=== PATIENT | female | born 1955 | race Caucasian/White ===

== ENCOUNTER → 2016-03-04 | Outpatient (CLI) | payer OTHER | LOC: M SLEEP 18:16 | PROVIDERS: ATTEND Nurse Practitioner Adult Health | DX: G47.30 Sleep apnea, unspecified (principal) ==

== ENCOUNTER → 2016-05-02 | Outpatient (REF) | payer OTHER | LOC: M SFHCWAGY 13:28 | PROVIDERS: ATTEND Family Medicine | DX: N88.8 Other specified noninflammatory disorders of cervix uteri (principal) ==

== ENCOUNTER → 2016-05-02 | Outpatient (CLI) | payer OTHER ==
--- NOTE | 2016-05-02 14:42 | REPMRS ---
Patient History The patient states she had a clinical breast exam in 04/2016. Family history of colorectal cancer in maternal grandfather at age 50 or over, colorectal cancer in maternal aunt at age 50 or over, and endometrial cancer in maternal aunt at age 50 or over. Took hormonal contraceptives for 1 year. Taking unspecified hormones for 10 years 6 months. Digital Woman Screen Mammo: May 02, 2016 - Exam #: [id number] Bilateral CC and MLO view(s) were taken. Technologist: Tessa Altman Technologist Prior study comparison: January 04, 2015, digital woman screen mammo performed at [facility]. December 09, 2013, bilateral bilat screen digital mammo, performed at [facility] ([facility]). November 04, 2012, bilateral bilat screen digital mammo, performed at [facility] ([facility]). FINDINGS: There are scattered fibroglandular densities. There has been no change in the appearance of the mammogram from the prior studies. There is a mild amount of scattered fibroglandular density which is fairly symmetric. There is no interval development of dominant mass, architectural distortion, or clustered microcalcification suggestive of malignancy. ASSESSMENT: BI-RADS/ACR category 1 mammogram. Negative. Recommendation Routine screening mammogram in 1 year (for women over age 40). This mammogram was interpreted with the aid of an FDA-approved computer-aided dectection system. Electronically Signed By: Stephan Sánchez MD 05/02/16 2253
== END ==
LOC: M WHC 13:02
PROVIDERS: ATTEND Family Medicine
DX: Z12.31 Encounter for screening mammogram for malignant neoplasm of breast (principal)
CPT/HCPCS: G0123; G0202

== ENCOUNTER → 2016-09-08 | Outpatient (REF) | payer OTHER | LOC: M LABDRAW1 10:46 | PROVIDERS: ATTEND Internal Medicine Endocrinology, Diabetes & Metabolism | DX: E03.9 Hypothyroidism, unspecified (principal) ==

== ENCOUNTER → 2016-10-24 | Outpatient (REF) | payer OTHER ==
[2016-10-24 12:46] LABS: BASO % 0.8 % (0.0-1.0); EOS # 0.1 K/mm3 (0.0-0.50); EOS % 1.2 % (0.0-3.0); LARGE UNSTAINED CELL # 0.1 K/mm3 (0.0-0.4); LARGE UNSTAINED CELL % 1.8 % (0.0-4.0); LYMPH # 2.6 K/mm3 (1.5-4.5); LYMPH % 41.6 % (24.0-44.0); MEAN CORPUSCULAR HGB CONC 33.6 g/dl (32.0-36.5); MEAN CORPUSCULAR VOLUME 89.2 fl (80.0-96.0); MONO # 0.4 K/mm3 (0.0-0.8); MONO % 6.9 % (0.0-5.0); NEUTROPHILS # 2.9 K/mm3 (1.8-7.7); NEUTROPHILS % 47.7 % (36.0-66.0); PLATELET COUNT, AUTOMATED 494 k/mm3 (150-450); RED CELL DISTRIBUTION WIDTH 12.9 % (11.5-14.5)
[2016-10-24 13:11] LABS: ALBUMIN 3.9 GM/DL (3.2-5.2); ALBUMIN/GLOBULIN RATIO 1.18 (1.00-1.93); ALKALINE PHOSPHATASE 56 U/L (45-117); ALT/SGPT 18 U/L (12-78); ANION GAP 8 MEQ/L (8-16); AST/SGOT 16 U/L (15-37); BILIRUBIN,TOTAL 0.6 MG/DL (0.2-1.0); BLOOD UREA NITROGEN 20 MG/DL (7-18); CARBON DIOXIDE LEVEL 32 MEQ/L (21-32); CHLORIDE LEVEL 100 MEQ/L (98-107); CHOLESTEROL LEVEL 200 MG/DL (<200); CREATININE FOR GFR 0.63 MG/DL (0.55-1.02); FREE T4 1.53 NG/DL (0.76-1.46); GLOMERULAR FILTRATION RATE > 60.0 (>45); GLUCOSE, FASTING 92 MG/DL (80-110); POTASSIUM SERUM 4.2 MEQ/L (3.5-5.1); SODIUM LEVEL 140 MEQ/L (136-145); TOTAL PROTEIN 7.2 GM/DL (6.4-8.2); TRIGLYCERIDES LEVEL 65 MG/DL (<150)
== END ==
LOC: M LAB REF 12:25
PROVIDERS: ATTEND Emergency Medicine
DX: E78.2 Mixed hyperlipidemia (principal); E03.9 Hypothyroidism, unspecified

== ENCOUNTER → 2016-11-10 | Outpatient (REF) | payer OTHER ==
[2016-11-10 15:10] LABS: PERCENT SATURATION 19.5 % (13.2-45.0)
== END ==
LOC: M LAB REF 13:13
PROVIDERS: ATTEND Internal Medicine Medical Oncology
DX: D47.3 Essential (hemorrhagic) thrombocythemia (principal)

== ENCOUNTER → 2017-03-04 | Outpatient (REF) | payer OTHER ==
[2017-03-04 13:09] LABS: HEPATITIS C VIRUS ABY INDEX < 0.0 INDEX (<0.8)
== END ==
LOC: M LABDRAW1 10:23
DX: J45.20 Mild intermittent asthma, uncomplicated (principal)

== ENCOUNTER → 2017-05-08 | Outpatient (REF) | payer OTHER | LOC: M SFHCWAGY 13:32 | DX: Z12.4 Encounter for screening for malignant neoplasm of cervix (principal) ==

== ENCOUNTER → 2017-05-08 | Outpatient (CLI) | payer OTHER | LOC: M WHC 13:05 | DX: Z12.31 Encounter for screening mammogram for malignant neoplasm of breast (principal) | CPT/HCPCS: G0123 ==

== ENCOUNTER 2017-07-15 07:26 | Day surgery (SDC) | payer OTHER ==
[2017-07-15] MEDS: NS 1,000 ML IV (07:45)
[2017-07-15] MEDS ORDERED: LIDOCAINE 2% INJ 100 MG/5 ML SDV (FOR ANES.) As Ordered (09:55)
[2017-07-15] MEDS ORDERED: PROPOFOL 200 MG/20 ML VIAL As Ordered ×2 (09:55→10:02)
== END 2017-07-15 10:56 | disposition home or self-care (01) ==
LOC: M OPP 07:26
DX: Z12.11 Encounter for screening for malignant neoplasm of colon (principal); Z86.010 Personal history of colon polyps; D12.2 Benign neoplasm of ascending colon; K64.0 First degree hemorrhoids; E78.5 Hyperlipidemia, unspecified; E03.9 Hypothyroidism, unspecified; R01.1 Cardiac murmur, unspecified; K44.9 Diaphragmatic hernia without obstruction or gangrene; D47.3 Essential (hemorrhagic) thrombocythemia; D64.9 Anemia, unspecified; K21.9 Gastro-esophageal reflux disease without esophagitis; M19.90 Unspecified osteoarthritis, unspecified site; M51.9 Unspecified thoracic, thoracolumbar and lumbosacral intervertebral disc disorder; L90.9 Atrophic disorder of skin, unspecified; M85.80 Other specified disorders of bone density and structure, unspecified site; J45.909 Unspecified asthma, uncomplicated; G47.30 Sleep apnea, unspecified; Z98.84 Bariatric surgery status; Z87.442 Personal history of urinary calculi; Z87.891 Personal history of nicotine dependence; Z88.8 Allergy status to other drugs, medicaments and biological substances; Z88.1 Allergy status to other antibiotic agents; Z79.82 Long term (current) use of aspirin; Z79.899 Other long term (current) drug therapy
CPT/HCPCS: 45380

== ENCOUNTER 2017-08-26 20:52 | Emergency (ER) | payer OTHER ==
[2017-08-26 21:48] LABS: BASO % 0.3 % (0.0-1.0); EOS # 0.1 10^3/uL (0.0-0.50); EOS % 0.5 % (0.0-3.0); HEMATOCRIT 45.6 % (36.0-47.0); HEMOGLOBIN 15.7 g/dl (12.0-15.5); IMMATURE GRANULOCYTE % 0.3 % (0-3.0); LYMPH # 2.9 10^3/uL (1.5-4.5); LYMPH % 30.4 % (24.0-44.0); MEAN CORPUSCULAR HEMOGLOBIN 29.1 pg (27.0-33.0); MEAN CORPUSCULAR HGB CONC 34.4 g/dl (32.0-36.5); MEAN CORPUSCULAR VOLUME 84.4 fl (80.0-96.0); MONO # 0.9 10^3/uL (0.0-0.8); MONO % 9.2 % (0.0-5.0); NEUTROPHILS # 5.7 10^3/uL (1.8-7.7); NEUTROPHILS % 59.3 % (36.0-66.0); PLATELET COUNT, AUTOMATED 491 10^3/uL (150-450); RED CELL DISTRIBUTION WIDTH 12.6 % (11.5-14.5); WHITE BLOOD COUNT 9.5 10^3/uL (4.0-10.0)
[2017-08-26] MEDS: NS 1,000 ML IV (21:48)
[2017-08-26] MEDS: PANTOPRAZOLE 40MG INJ (PROTONIX) (C9113) IV (21:48)
[2017-08-26 22:00] LABS: INR 1.06; PARTIAL THROMBOPLASTIN TIME 29.3 SECONDS (25.4-37.6); PROTHROMBIN TIME 13.9 SECONDS (12.1-14.4)
[2017-08-26 22:12] LABS: ALBUMIN 3.9 GM/DL (3.2-5.2); ALBUMIN/GLOBULIN RATIO 0.91 (1.00-1.93); ALKALINE PHOSPHATASE 72 U/L (45-117); ALT/SGPT 20 U/L (12-78); ANION GAP 10 MEQ/L (8-16); AST/SGOT 16 U/L (7-37); BILIRUBIN,DIRECT 0.2 MG/DL (0.0-0.2); BILIRUBIN,TOTAL 0.8 MG/DL (0.2-1.0); BLOOD UREA NITROGEN 23 MG/DL (7-18); CARBON DIOXIDE LEVEL 31 MEQ/L (21-32); CHLORIDE LEVEL 96 MEQ/L (98-107); CREATININE FOR GFR 0.87 MG/DL (0.55-1.30); GLOMERULAR FILTRATION RATE > 60.0 (>45); GLUCOSE, FASTING 95 MG/DL (70-100); LIPASE 261 U/L (73-393); POTASSIUM SERUM 3.1 MEQ/L (3.5-5.1); SODIUM LEVEL 137 MEQ/L (136-145); TOTAL PROTEIN 8.2 GM/DL (6.4-8.2)
== END 2017-08-26 23:23 | disposition home or self-care (01) ==
LOC: M ED 20:52
DX: K92.2 Gastrointestinal hemorrhage, unspecified (principal); K92.1 Melena; K64.8 Other hemorrhoids; K21.9 Gastro-esophageal reflux disease without esophagitis; G47.30 Sleep apnea, unspecified; E03.9 Hypothyroidism, unspecified; Z88.8 Allergy status to other drugs, medicaments and biological substances; Z88.1 Allergy status to other antibiotic agents; Z98.84 Bariatric surgery status; Z79.899 Other long term (current) drug therapy; Z79.82 Long term (current) use of aspirin
CPT/HCPCS: C9113

== ENCOUNTER → 2017-09-07 | Outpatient (REF) | payer OTHER ==
[2017-09-07 14:40] LABS: CHOLESTEROL LEVEL 178 MG/DL (<200); CHOLESTEROL RISK RATIO 1.913 (<5); FREE T4 1.48 NG/DL (0.76-1.46); HDL CHOLESTEROL 93 MG/DL (>40); LDL CHOLESTEROL 72.2 MG/DL (<100); NON-HDL-C 85 MG/DL; TRIGLYCERIDES LEVEL 64 MG/DL (<150)
== END ==
LOC: M LABDRAW1 12:57
DX: E78.2 Mixed hyperlipidemia (principal); E03.9 Hypothyroidism, unspecified
CPT/HCPCS: 84443

== ENCOUNTER → 2018-05-14 | Outpatient (CLI) | payer OTHER ==
[~2018-05-14] MED LIST: ALBU83IN INH; AMMO12CR EXT; ASPI81TA24 PO; ATRO0.063; BENA25CA4 PO; CHLO125TA PO; CORT1OIN2 TOP; EQ S PO; ESTR62CR TOP; IPRAINH INH; IRON15CH PO; K-TA1TAB PO; LAC-12LO3 TOP; LEVOPOW56 XX; OPUR1TAB PO; PANT40TA3 PO; REGL10TA6 PO; ROSU10TA5 PO; SYNT100T PO; XYZA5TAB2 PO; ZOFR4TAB16 PO
--- NOTE | 2018-05-14 17:07 | REPMRS ---
Patient History The patient states she has not had a clinical breast exam in over a year. Family history of colorectal cancer at age 50 or over in maternal grandfather, colorectal cancer at age 50 or over and endometrial cancer at age 50 or over in maternal aunt. Took hormonal contraceptives for 1 year. Taking unspecified hormones for 12 years 6 months. Digital Woman Screen Mammo: May 14, 2018 - Exam #: [id number] Bilateral CC and MLO view(s) were taken. Technologist: Tessa Altman Technologist Prior study comparison: May 08, 2017, digital woman screen mammo performed at [facility]. May 02, 2016, digital woman screen mammo performed at [facility]. FINDINGS: There are scattered fibroglandular densities. There has been no change in the appearance of the mammogram from the prior studies. There is a mild amount of residual fibroglandular tissue which is fairly symmetric. There is no interval development of dominant mass, architectural distortion, or clustered microcalcification suggestive of malignancy. There are scattered, small, benign calcifications of doubtful clinical significance. No significant changes when compared with prior studies. Assessment: BI-RADS/ACR category 2 mammogram. Benign Findings. Recommendation Routine screening mammogram in 1 year (for women over age 40). This mammogram was interpreted with the aid of an FDA-approved computer-aided dectection system. A. Negative x-ray reports should not delay biopsy if a dominant or clinically suspicious mass is present. B. Four to eight percent of cancers are not identified by mammography. C. Adenosis and dense breast may obscure an underlying neoplasm. Electronically Signed By: Willy Osborne MD 05/14/18 2169
== END ==
LOC: M WHC 14:02
PROVIDERS: ATTEND Family Medicine
DX: Z12.31 Encounter for screening mammogram for malignant neoplasm of breast (principal); Z80.0 Family history of malignant neoplasm of digestive organs; Z80.49 Family history of malignant neoplasm of other genital organs

== ENCOUNTER → 2018-05-14 | Outpatient (REF) | payer OTHER | LOC: M SFHCWAGY 14:34 | PROVIDERS: ATTEND Family Medicine | DX: Z12.4 Encounter for screening for malignant neoplasm of cervix (principal); N88.8 Other specified noninflammatory disorders of cervix uteri ==

== ENCOUNTER → 2018-09-10 | Outpatient (REF) | payer OTHER ==
[~2018-09-10] MED LIST changes: -EQ S PO; -ROSU10TA5 PO; +ROSU10TA6 PO; +STOO100C15 PO
[2018-09-10 13:00] LABS: BASO # 0.1 10^3/uL (0.0-0.2); BASO % 1.2 % (0.0-1.0); EOS # 0.1 10^3/uL (0.0-0.50); EOS % 2.5 % (0.0-3.0); HEMATOCRIT 44.3 % (36.0-47.0); HEMOGLOBIN 14.5 g/dl (12.0-15.5); LYMPH # 2.2 10^3/uL (1.5-4.5); LYMPH % 44.9 % (24.0-44.0); MEAN CORPUSCULAR HEMOGLOBIN 29.5 pg (27.0-33.0); MEAN CORPUSCULAR HGB CONC 32.7 g/dl (32.0-36.5); MEAN CORPUSCULAR VOLUME 90.2 fl (80.0-96.0); MONO # 0.4 10^3/uL (0.0-0.8); MONO % 8.8 % (0.0-5.0); NEUTROPHILS # 2.1 10^3/uL (1.8-7.7); NEUTROPHILS % 42.4 % (36.0-66.0); PLATELET COUNT, AUTOMATED 445 10^3/uL (150-450); RED BLOOD COUNT 4.91 10^6/uL (4.00-5.40); WHITE BLOOD COUNT 4.9 10^3/uL (4.0-10.0)
[2018-09-10 13:38] LABS: ALBUMIN 3.7 GM/DL (3.2-5.2); ALT/SGPT 16 U/L (12-78); BILIRUBIN,TOTAL 0.4 MG/DL (0.2-1.0); BLOOD UREA NITROGEN 18 MG/DL (7-18); CALCIUM LEVEL 9.2 MG/DL (8.8-10.2); CARBON DIOXIDE LEVEL 34 MEQ/L (21-32); CHLORIDE LEVEL 101 MEQ/L (98-107); CREATININE FOR GFR 0.76 MG/DL (0.55-1.30); FREE T4 1.33 NG/DL (0.76-1.46); GLOMERULAR FILTRATION RATE > 60.0 (>45); GLUCOSE, FASTING 91 MG/DL (70-100); POTASSIUM SERUM 4.2 MEQ/L (3.5-5.1); SODIUM LEVEL 138 MEQ/L (136-145)
== END ==
LOC: M LAB REF 12:13 → M LABDRWAD 12:13
PROVIDERS: ATTEND Physician Assistant
DX: E78.2 Mixed hyperlipidemia (principal); E03.9 Hypothyroidism, unspecified; Z98.84 Bariatric surgery status

== ENCOUNTER → 2019-01-30 | Outpatient (CLI) | payer OTHER ==
[~2019-01-30] MED LIST changes: +[UNRECOGNIZED DRUG - CODE] PO; +[UNRECOGNIZED DRUG - CODE] XX
[2019-01-30 19:05] LABS: BASO # 0.1 10^3/uL (0.0-0.2); BASO % 0.7 % (0.0-1.0); EOS # 0.1 10^3/uL (0.0-0.5); EOS % 0.7 % (0.0-3.0); HEMOGLOBIN 15.2 g/dl (12.0-15.5); LYMPH # 2.5 10^3/uL (1.5-5.0); MEAN CORPUSCULAR HEMOGLOBIN 29.6 pg (27.0-33.0); MEAN CORPUSCULAR HGB CONC 31.7 g/dl (32.0-36.5); MEAN CORPUSCULAR VOLUME 93.4 fl (80.0-96.0); MONO # 0.7 10^3/uL (0.0-0.8); MONO % 6.6 % (0.0-5.0); NEUTROPHILS # 6.9 10^3/uL (1.5-8.5); NEUTROPHILS % 67.7 % (36.0-66.0); PLATELET COUNT, AUTOMATED 523 10^3/uL (150-450); RED BLOOD COUNT 5.14 10^6/uL (4.00-5.40); WHITE BLOOD COUNT 10.2 10^3/uL (4.0-10.0)
[2019-01-30 19:16] LABS: ALT/SGPT 19 U/L (12-78); BILIRUBIN,TOTAL 0.7 MG/DL (0.2-1.0); BLOOD UREA NITROGEN 26 MG/DL (7-18); CALCIUM LEVEL 9.4 MG/DL (8.8-10.2); CARBON DIOXIDE LEVEL 30 MEQ/L (21-32); CHLORIDE LEVEL 97 MEQ/L (98-107); CREATININE FOR GFR 0.75 MG/DL (0.55-1.30); GLOMERULAR FILTRATION RATE > 60.0 (>45); GLUCOSE, FASTING 104 MG/DL (70-100); POTASSIUM SERUM 3.8 MEQ/L (3.5-5.1); SODIUM LEVEL 137 MEQ/L (136-145); TOTAL PROTEIN 7.5 GM/DL (6.4-8.2)
== END ==
LOC: M ADAMS 11:55
PROVIDERS: ATTEND Physician Assistant
DX: E78.00 Pure hypercholesterolemia, unspecified (principal)

== ENCOUNTER → 2019-03-30 | Outpatient (CLI) | payer OTHER ==
[~2019-03-30] MED LIST changes: +ASPI81TA85 PO
--- NOTE | 2019-03-31 03:40 | REP ---
Clinical: Multinodular goiter. Technique: Real time morel scale and color evaluation using linear high frequency transducer. Findings: The thyroid gland is relatively normal in contour, size, and overall echotexture. The isthmus measures 2.7 mm in width. Right lobe measures 4.5 x 1.4 x 1.4 cm and includes 6.5 x 5.4 x 5.3 cm hypoechoic mid pole nodule with punctate calcifications, adjacent 3.4 x 3.0 x 3.0 mm similar hypoechoic nodule with punctate calcifications, and 5.5 x 2.7 x 5.6 cm complex mid/lower pole cyst with calcification. Left lobe measures 3.4 x 1.7 x 1.4 cm and includes 15.4 x 8.4 x 13.9 mm complex cyst with echogenic foci/calcification, adjacent 3.7 x 4.8 x 6.2 cm complex cyst with internal echogenicities/soft tissue, and 9.3 x 6.7 x 9.2 mm complex lower pole adjacent cyst. Impression: Complex changes to the thyroid gland as described above. Correlation with laboratory values and nuclear medicine imaging may be warranted for further investigation. If necessary, tissue sampling and aspiration may be considered. Electronically Signed by Rickey Alas MD 03/31/2019 03:32 A
--- NOTE | 2019-03-31 04:37 | REP ---
Clinical: History of right ovarian cyst. Technique: Transabdominal pelvic ultrasound followed by transvaginal examination for better evaluation of the endometrium and adnexa with color Doppler evaluation of the ovaries. Findings: The patient is known to be status post partial hysterectomy. Small Nabothian cysts are identified within the residual cervical tissue and no further gross abnormalities identified. The bilateral ovaries are normal in vascularity without torsion. Left ovary measures 2.6 x 1.0 x 1.2 cm (RI 0.63). The right ovary measures 5.3 x 2.6 x 4.0 cm (RI 0.56) and includes 5.0 x 2.4 x 3.7 cm cyst which appears to be increased when compared to most recent prior examination dated 11/07/2014. No pelvic fluid or adnexal mass lesion. Impression: 1. Status post partial hysterectomy. 2. 5.0 cm right ovarian cyst appears to be increased when compared to 2015 ultrasound examination. Electronically Signed by Rickey Alas MD 03/31/2019 04:29 A
== END ==
LOC: M RAD 09:35
PROVIDERS: ATTEND Physician Assistant
DX: N83.201 Unspecified ovarian cyst, right side (principal); E04.2 Nontoxic multinodular goiter

== ENCOUNTER → 2019-05-16 | Outpatient (CLI) | payer OTHER ==
[~2019-05-16] MED LIST changes: +LIDOCAINE 1% MDV 20ML VIAL As Ordered ONE
[2019-05-16 15:38] VITALS: BP 147/65
--- NOTE | 2019-05-16 18:15 | REP ---
ULTRASOUND-GUIDED BILATERAL THYROID BIOPSY The procedure was performed under the direct supervision of Dr. Rodriguez. The risks and benefits of the procedure were explained to the patient and informed consent was obtained. The largest thyroid nodule on the left and right were localized using ultrasound guidance. The skin was prepped and draped in a sterile fashion. The right thyroid nodule was addressed first. 1% lidocaine was used as a local anesthetic. Using ultrasound guidance six fine-needle aspirations were obtained. The left thyroid nodule was then addressed. 1% lidocaine was used as a local anesthetic. Using ultrasound guidance six fine-needle aspirations were obtained. The patient tolerated the procedure well and there were no immediate complications. After the appropriate amount of monitored convalescence the patient was discharged from the department. Electronically Signed by FRANCOISE Turner 05/16/2019 05:48 P Electronically Signed by Martín Rodriguez MD 05/16/2019 06:06 P
== END ==
LOC: M IRPRO 13:55
PROVIDERS: ATTEND Otolaryngology
DX: E04.9 Nontoxic goiter, unspecified (principal)

== ENCOUNTER → 2019-07-07 | Outpatient (CLI) | payer OTHER ==
[~2019-07-07] MED LIST changes: -LIDOCAINE 1% MDV 20ML VIAL As Ordered ONE
--- NOTE | 2019-07-13 15:44 | DEXA ---
AP SPINE L1 - L4 1.164 -0.1 1.3 LT FEMUR TOTAL 0.928 -0.6 0.4 LT NECK 0.832 -1.5 -0.1 RT FEMUR TOTAL 0.876 -1.0 0.0 RT NECK 0.760 -2.0 -0.7 TOTAL BODY TOTAL OTHER COMMENTS: Normal bone densitometry of the spine. There is low bone density of the hips. The density of the spine has decreased 4.6% since 11/17/2008. The density of the left hip has decreased 8.1% since 11/17/2008. The density of the right hip has decreased 11.1% since 11/17/2008. The decreased density of the spine does represent a significant change. The decreased density of the left hip does represent a significant change. The decreased density of the right hip does represent a significant change. FOLLOW-UP: Recommendation for the next bone density exam: 2 years. GRACE
== END ==
LOC: M WHC 11:14
PROVIDERS: ATTEND Physician Assistant
DX: M85.851 Other specified disorders of bone density and structure, right thigh (principal)

== ENCOUNTER → 2019-07-29 | Outpatient (REF) | payer OTHER ==
[~2019-07-29] MED LIST changes: +CBD OIL PO; +LEVOTAB10 PO; +VITA250T18 PO
[2019-07-29 17:55] LABS: HEMATOCRIT 45.8 % (36.0-47.0); HEMOGLOBIN 14.8 g/dl (12.0-15.5); MEAN CORPUSCULAR HGB CONC 32.3 g/dl (32.0-36.5); MEAN CORPUSCULAR VOLUME 89.6 fl (80.0-96.0); PLATELET COUNT, AUTOMATED 559 10^3/uL (150-450); RED BLOOD COUNT 5.11 10^6/uL (4.00-5.40); WHITE BLOOD COUNT 8.3 10^3/uL (4.0-10.0)
[2019-07-29 17:56] LABS: ALT/SGPT 21 U/L (12-78); BILIRUBIN,TOTAL 0.8 MG/DL (0.2-1.0); BLOOD UREA NITROGEN 20 MG/DL (7-18); CALCIUM LEVEL 9.5 MG/DL (8.8-10.2); CARBON DIOXIDE LEVEL 32 MEQ/L (21-32); CHLORIDE LEVEL 99 MEQ/L (98-107); GLOMERULAR FILTRATION RATE > 60.0 (>45); GLUCOSE, FASTING 91 MG/DL (70-100); POTASSIUM SERUM 4.2 MEQ/L (3.5-5.1); SODIUM LEVEL 136 MEQ/L (136-145); TOTAL PROTEIN 7.5 GM/DL (6.4-8.2)
[2019-07-29 18:06] LABS: INR 1.04; PROTHROMBIN TIME 13.3 SECONDS (11.8-14.0)
[2019-07-29 18:07] LABS: PARTIAL THROMBOPLASTIN TIME 30.4 SECONDS (25.0-38.4)
== END ==
LOC: M SFHCADAM 11:26
PROVIDERS: ATTEND Physician Assistant
DX: Z01.818 Encounter for other preprocedural examination (principal)

== ENCOUNTER 2019-08-08 12:09 | Day surgery (SDC) | payer OTHER ==
[~2019-08-08] VITALS: Ht 147.3 cm; Wt 83.9 kg
[~2019-08-08 12:09] MED LIST changes: +LIDOCAINE 1% MDV 20ML VIAL SQ PRN; +LR 1,000 ML IV ONE
[2019-08-08 12:50] LABS: HEMATOCRIT 47.2 % (36.0-47.0); HEMOGLOBIN 15.9 g/dl (12.0-15.5); MEAN CORPUSCULAR HEMOGLOBIN 30.1 pg (27.0-33.0); MEAN CORPUSCULAR HGB CONC 33.7 g/dl (32.0-36.5); MEAN CORPUSCULAR VOLUME 89.4 fl (80.0-96.0); PLATELET COUNT, AUTOMATED 519 10^3/uL (150-450); RED BLOOD COUNT 5.28 10^6/uL (4.00-5.40); WHITE BLOOD COUNT 6.7 10^3/uL (4.0-10.0)
[2019-08-08] MEDS ORDERED: BUPIVACAINE HCL 0.25% 30ML VIAL As Ordered ONE (15:00)
[2019-08-08] MEDS ORDERED: SUGAMMADEX SODIUM 500 MG/5 ML VIAL (BRIDION) As Ordered ONE (15:36)
[2019-08-08] MEDS ORDERED: propofoL 200 MG/20 ML VIAL As Ordered ONE (15:36)
[2019-08-08] MEDS ORDERED: MIDAZOLAM INJ 2MG/2ML VIAL (J2250 PER 1MG) As Ordered ONE (15:36)
[2019-08-08] MEDS ORDERED: LIDOCAINE 2% 100MG/5ML SDV (FOR ANES.) As Ordered ONE (15:36)
[2019-08-08] MEDS ORDERED: ROCURONIUM BROMIDE 50 MG/5 ML VIAL As Ordered ONE ×2 (15:36→16:34)
[2019-08-08] MEDS ORDERED: ONDANSETRON 4MG/2ML VIAL As Ordered ONE (15:36)
[2019-08-08] MEDS ORDERED: fentaNYL 100 MCG/2 ML INJECTION (J3010) As Ordered ONE (15:36)
[2019-08-08] MEDS ORDERED: HYDROmorphone HCL 2 MG/ML 1ML VIAL (J1170) As Ordered ONE (15:36)
[2019-08-08] MEDS ORDERED: dexameTHASONE 4 MG/ML 1ML VIAL (J1100 PER 1MG) As Ordered ONE (15:36)
[2019-08-08] MEDS ORDERED: ACETAMINOPHEN 1000MG 100ML IV BTL (OFIRMEV) (J0131 PER 10MG) As Ordered ONE (15:39)
[2019-08-08] MEDS ORDERED: LACRILUBE (AKWA TEARS) OPHTH OINT 3.5 GM As Ordered ONE (16:59)
[2019-08-08] MEDS ORDERED: LR 1,000 ML IV SCH ×2 (17:45)
[2019-08-08] MEDS ORDERED: ONDANSETRON 4MG/2ML VIAL IV PRN (17:45)
[2019-08-08] MEDS ORDERED: PERCOCET 5MG/325MG TAB PO PRN (17:45)
[2019-08-08] MEDS ORDERED: oxyCODONE 5MG TAB PO PRN (17:45)
[2019-08-08] MEDS ORDERED: fentaNYL 100 MCG/2 ML INJECTION (J3010) IV PRN (17:45)
[2019-08-08 19:40] VITALS: BP 121/51
--- NOTE | 2019-08-11 22:23 | RO ---
DATE OF PROCEDURE: 08/08/2019 PREPROCEDURE DIAGNOSIS: Right ovarian cystoadenoma. POSTPROCEDURE DIAGNOSIS: Right ovarian cystadenoma. PROCEDURE: Laparoscopic right salpingo-ophorectomy. SURGEON: Michael Palmer MD [employer]IVIL ENGINEERING DESIGN DRAFTSPERSON: ANESTHESIA: General endotracheal. ESTIMATED BLOOD LOSS: 50 mL. URINE OUTPUT: 400 mL. FINDINGS: 5 cm cystadenoma of the right ovary, surgically absent uterus. Dense adhesions of small bowel to the right ovary. Adhesions of the right ovary to the right pelvic sidewall and bladder. Omental adhesions in the midline. Small bowel adhesions to the anterior abdominal wall in the left pelvis. Large bowel adhesions to the anterior abdominal wall in the left pelvis as well. DESCRIPTION OF PROCEDURE: The patient was taken to the operating room where general endotracheal anesthesia was induced. She was prepped and draped in a sterile fashion in the dorsal lithotomy position. A Holland catheter was placed. A sponge stick was placed to use as a manipulator. A periumbilical incision was made with a scalpel. A Veress needle was placed through this incision while tenting up on the skin of the abdomen. Intraabdominal location of the Veress needle was assessed with the use of a saline-filled syringe. A pneumoperitoneum was created. The Veress needle was removed. An 8 mm trocar using Visiport was inserted through this incision. Two 5 mm suprapubic ports were placed under direct visualization. 10 mm scope with camera was used to visualize the abdomen and pelvis with the findings noted above. Dense adhesions of omentum to the anterior abdominal wall were taken down with a combination of blunt and sharp dissection using the LigaSure device. Once this was performed, the pelvis could be evaluated and the right ovarian mass was identified, adhered to small bowel on multiple sides. Cyst was elevated. Small bowel adhesions to the ovary were taken down with a combination of blunt and sharp dissection. Adhesions to the bladder and sidewall were taken down with a combination of blunt and sharp dissection. In a slow way, we worked our way around the circumference of the ovarian mass. The IP ligament was identified and from small bowel. It was coagulated and incised using the LigaSure. The ovary was then peeled away from the sidewall. It was difficult to definitively identify ureter, but it appeared to be identified at one point during the operation. It appeared to be away from the operative site. The mass was then removed from all attachments. The mass was placed in an Endo Catch bag and removed through the umbilicus. It was drained at the umbilicus. There was no intraabdominal spill of cyst contents. The skin of all incisions was closed with #4-0 Monocryl subcuticular sutures. Cystoscopy was performed using a 70-degree cystoscope. The right ureteral jet was readily identified. There was no evidence of injury to the bladder. All instruments were removed. Sponge, instrument and needle counts were correct. The patient was extubated and went to the recovery room in stable condition.
== END 2019-08-08 20:17 | disposition home or self-care (01) ==
LOC: M SDC 12:09
PROVIDERS: ATTEND Specialist
DX: N83.291 Other ovarian cyst, right side (principal); K66.0 Peritoneal adhesions (postprocedural) (postinfection); G47.33 Obstructive sleep apnea (adult) (pediatric); Z99.89 Dependence on other enabling machines and devices; E78.5 Hyperlipidemia, unspecified; E55.9 Vitamin D deficiency, unspecified; J45.909 Unspecified asthma, uncomplicated; E66.01 Morbid (severe) obesity due to excess calories; E03.9 Hypothyroidism, unspecified; Z98.84 Bariatric surgery status; Z88.1 Allergy status to other antibiotic agents; Z88.8 Allergy status to other drugs, medicaments and biological substances; Z79.899 Other long term (current) drug therapy; Z79.82 Long term (current) use of aspirin
CPT/HCPCS: 36415; 58661; 85027; 88307; J0131; J1100; J1170; J2250; J2405; J3010

== ENCOUNTER → 2019-09-09 | Outpatient (REF) | payer OTHER ==
[~2019-09-09] MED LIST changes: -ASPI81TA85 PO; +ASPI81TA86 PO; -LIDOCAINE 1% MDV 20ML VIAL SQ PRN; -LR 1,000 ML IV ONE; +PANT40TA29 PO; -PANT40TA3 PO
[2019-09-09 13:05] LABS: CHOLESTEROL RISK RATIO 2.308 (<5); FREE T4 1.58 NG/DL (0.76-1.46); THYROID STIMULATING HORMONE 3.1 uIU/ML (0.358-3.740)
== END ==
LOC: M SFHCADAM 08:36
PROVIDERS: ATTEND Physician Assistant
DX: E04.2 Nontoxic multinodular goiter (principal); E78.00 Pure hypercholesterolemia, unspecified

== ENCOUNTER → 2019-11-17 | Outpatient (CLI) | payer OTHER ==
[2019-11-17 14:22] LABS: BASO # 0.1 10^3/uL (0.0-0.2); BASO % 0.7 % (0.0-1.0); EOS # 0.1 10^3/uL (0.0-0.5); EOS % 0.6 % (0.0-3.0); HEMATOCRIT 46.6 % (36.0-47.0); LYMPH # 2.2 10^3/uL (1.5-5.0); LYMPH % 22.7 % (24.0-44.0); MEAN CORPUSCULAR HEMOGLOBIN 29.2 pg (27.0-33.0); MEAN CORPUSCULAR HGB CONC 32.2 g/dl (32.0-36.5); MEAN CORPUSCULAR VOLUME 90.8 fl (80.0-96.0); MONO # 0.8 10^3/uL (0.0-0.8); MONO % 7.9 % (0.0-5.0); NEUTROPHILS # 6.5 10^3/uL (1.5-8.5); NEUTROPHILS % 67.6 % (36.0-66.0); PLATELET COUNT, AUTOMATED 508 10^3/uL (150-450); RED BLOOD COUNT 5.13 10^6/uL (4.00-5.40); WHITE BLOOD COUNT 9.6 10^3/uL (4.0-10.0)
[2019-11-17 14:54] LABS: ALBUMIN 3.6 GM/DL (3.2-5.2); ALT/SGPT 14 U/L (12-78); BILIRUBIN,TOTAL 0.5 MG/DL (0.2-1.0); BLOOD UREA NITROGEN 25 MG/DL (7-18); CALCIUM LEVEL 9.6 MG/DL (8.8-10.2); CARBON DIOXIDE LEVEL 28 MEQ/L (21-32); CHLORIDE LEVEL 100 MEQ/L (98-107); CREATININE FOR GFR 0.69 MG/DL (0.55-1.30); GLOMERULAR FILTRATION RATE > 60.0 (>45); GLUCOSE, FASTING 95 MG/DL (70-100); LIPASE 202 U/L (73-393); POTASSIUM SERUM 4.3 MEQ/L (3.5-5.1); SODIUM LEVEL 138 MEQ/L (136-145); TOTAL PROTEIN 7.1 GM/DL (6.4-8.2)
== END ==
LOC: M LABDRWAD 09:26
PROVIDERS: ATTEND Physician Assistant
DX: R19.7 Diarrhea, unspecified (principal); R10.84 Generalized abdominal pain

== ENCOUNTER → 2019-11-17 | Outpatient (CLI) | payer OTHER ==
[2019-11-17 16:33] LABS: PERCENT SATURATION 18.8 % (13.2-45.0)
[2019-11-17 17:17] LABS: TOTAL 25(OH) VITAMIN D 39.6 NG/ML (30.0-100.0)
[2019-11-17 17:19] LABS: FOLATE 22.5 NG/ML (>5.4)
[2019-11-22 11:20] LABS: VITAMIN A, RETINOL LEVEL 48.1 ug/dL (22.0-69.5); VITAMIN B1 LEVEL WHOLE BLOOD 172.1 nmol/L (66.5-200.0)
== END ==
LOC: M LABDRWAD 09:21
PROVIDERS: ATTEND Physician Assistant
DX: Z98.84 Bariatric surgery status (principal)

== ENCOUNTER → 2019-12-09 | Outpatient (REF) | payer OTHER | LOC: M SFHCADAM 12:06 | PROVIDERS: ATTEND Physician Assistant Medical | DX: R19.7 Diarrhea, unspecified (principal) ==

== ENCOUNTER → 2019-12-10 | Outpatient (REF) | payer OTHER | LOC: M LAB REF 06:32 | PROVIDERS: ATTEND Physician Assistant Medical | DX: R19.7 Diarrhea, unspecified (principal) ==

== ENCOUNTER → 2020-01-17 | Outpatient (REF) | payer OTHER | LOC: M SFHCADAM 12:52 | PROVIDERS: ATTEND Physician Assistant | DX: R19.7 Diarrhea, unspecified (principal) ==

== ENCOUNTER → 2020-03-16 | Outpatient (REF) | payer OTHER ==
[~2020-03-16] MED LIST changes: +B-1225002 SL; +FAMO40TA3 PO; +VANC125C3 PO
== END ==
LOC: M LAB REF 12:51
PROVIDERS: ATTEND Internal Medicine Gastroenterology
DX: A04.72 Enterocolitis due to Clostridium difficile, not specified as recurrent (principal)

== ENCOUNTER → 2020-09-24 | Outpatient (REF) | payer OTHER ==
[2020-09-24 09:54] LABS: HEMATOCRIT 47.4 % (36.0-47.0); HEMOGLOBIN 15.5 g/dl (12.0-15.5); MEAN CORPUSCULAR HGB CONC 32.7 g/dl (32.0-36.5); MEAN CORPUSCULAR VOLUME 88.8 fl (80.0-96.0); PLATELET COUNT, AUTOMATED 523 10^3/uL (150-450); RED BLOOD COUNT 5.34 10^6/uL (4.00-5.40); WHITE BLOOD COUNT 6.3 10^3/uL (4.0-10.0)
[2020-09-24 10:25] LABS: CREATININE, URINE 79.7 MG/DL; MALB URINE SIEMENS 5.3 MG/L; MAU/CREAT RATIO 6.6 MCG/MG (0.0-30.0)
[2020-09-24 10:59] LABS: ALBUMIN 3.8 GM/DL (3.2-5.2); ALT/SGPT 20 U/L (12-78); BILIRUBIN,TOTAL 0.5 MG/DL (0.2-1.0); BLOOD UREA NITROGEN 20 MG/DL (7-18); CARBON DIOXIDE LEVEL 33 MEQ/L (21-32); CHLORIDE LEVEL 99 MEQ/L (98-107); CHOLESTEROL LEVEL 221 MG/DL (<200); CHOLESTEROL RISK RATIO 2.166 (<5); CREATININE FOR GFR 0.67 MG/DL (0.55-1.30); FERRITIN 65 NG/ML (8-252); FOLATE > 24.0 NG/ML; FREE T4 1.26 NG/DL (0.76-1.46); GLOMERULAR FILTRATION RATE > 60.0 (>45); GLUCOSE, FASTING 101 MG/DL (70-100); HDL CHOLESTEROL 102 MG/DL (>40); IRON (FE) 61 UG/DL (50-170); LDL CHOLESTEROL 104 MG/DL (<100); NON-HDL-C 119 MG/DL; PERCENT SATURATION 18.4 % (13.2-45.0); POTASSIUM SERUM 3.7 MEQ/L (3.5-5.1); PREALBUMIN 18.5 MG/DL (20.0-40.0); SODIUM LEVEL 137 MEQ/L (136-145); TOTAL 25(OH) VITAMIN D 39.9 NG/ML (30.0-100.0); TOTAL IRON BINDING CAPACITY 332 UG/DL (250-450); TOTAL PROTEIN 7.4 GM/DL (6.4-8.2); TRIGLYCERIDES LEVEL 73 MG/DL (<150); VITAMIN B12 LEVEL > 2000 PG/ML
== END ==
LOC: M SFHCADAM 08:31
PROVIDERS: ATTEND Physician Assistant
DX: Z98.84 Bariatric surgery status (principal); I10 Essential (primary) hypertension; E03.9 Hypothyroidism, unspecified; E78.49 Other hyperlipidemia; E55.9 Vitamin D deficiency, unspecified; K59.09 Other constipation

== ENCOUNTER 2020-10-01 10:36 | Emergency (ER) | payer OTHER ==
[~2020-10-01] VITALS: Ht 147.3 cm; Wt 87.1 kg
--- NOTE | 2020-10-01 11:48 | REP ---
INDICATION: CHEST PAIN. COMPARISON: 05/22/2009. TECHNIQUE: Single portable AP view of the chest was performed. FINDINGS: There is no acute infiltrate or pulmonary edema. Lungs are clear. The heart is not significantly enlarged. The mediastinal silhouette is unremarkable. The visualized osseous structures are intact. IMPRESSION: No acute pulmonary disease. <Electronically signed by Martín Rodriguez > 10/01/20 1142
[2020-10-01 12:55] LABS: BASO % 0.3 % (0.0-1.0); HEMATOCRIT 46.5 % (36.0-47.0); HEMOGLOBIN 15.3 g/dl (12.0-15.5); LYMPH # 1.2 10^3/uL (1.5-5.0); MEAN CORPUSCULAR HEMOGLOBIN 28.8 pg (27.0-33.0); MEAN CORPUSCULAR HGB CONC 32.9 g/dl (32.0-36.5); MEAN CORPUSCULAR VOLUME 87.6 fl (80.0-96.0); MONO # 0.5 10^3/uL (0.0-0.8); MONO % 5.1 % (2.0-8.0); NEUTROPHILS # 7.1 10^3/uL (1.5-8.5); NEUTROPHILS % 80.3 % (36.0-66.0); PLATELET COUNT, AUTOMATED 481 10^3/uL (150-450); RED BLOOD COUNT 5.31 10^6/uL (4.00-5.40); WHITE BLOOD COUNT 8.8 10^3/uL (4.0-10.0)
--- NOTE | 2020-10-01 14:25 | REP ---
INDICATION: right flank pain COMPARISON: None. TECHNIQUE: CT Scan of the abdomen and pelvis was performed without intravenous contrast. Sagittal and coronal reconstruction images performed. FINDINGS: Lung bases: Unremarkable. Liver: Grossly unremarkable. Gallbladder: Unremarkable. Spleen: Grossly unremarkable. Adrenals: Normal. Pancreas: Grossly unremarkable.. Kidneys: No hydronephrosis. There is a punctate intrarenal calculus in the upper right kidney.. Ureters demonstrate no dilatation or calculus. Small and large bowel: Grossly unremarkable. Free fluid: None. Abdominal aorta: No aneurysm. Adenopathy: None. Appendix: Prior appendectomy. Osseous structures: There are degenerative changes of the spine without compression deformity. Pelvis: No mass. No bladder calculus seen. There is a small umbilical hernia containing noninflamed fat. IMPRESSION: Punctate intrarenal calculus on the right. No hydroureteronephrosis. No bladder calculus. Small umbilical hernia contains noninflamed fat. <Electronically signed by Martín Rodriguez > 10/01/20 0855
[2020-10-01 14:49] LABS: ALBUMIN 3.6 GM/DL (3.2-5.2); ALT/SGPT 17 U/L (12-78); BILIRUBIN,DIRECT 0.2 MG/DL (0.0-0.2); BILIRUBIN,TOTAL 0.4 MG/DL (0.2-1.0); BLOOD UREA NITROGEN 21 MG/DL (7-18); CALCIUM LEVEL 8.9 MG/DL (8.8-10.2); CARBON DIOXIDE LEVEL 27 MEQ/L (21-32); CHLORIDE LEVEL 100 MEQ/L (98-107); CK-MB VALUE MASS < 1.0 NG/ML (<3.6); CPK CREATINE PHOSPHOKINASE 46 U/L (26-192); CREATININE FOR GFR 0.45 MG/DL (0.55-1.30); GLOMERULAR FILTRATION RATE > 60.0 (>45); GLUCOSE, FASTING 107 MG/DL (70-100); LIPASE 157 U/L (73-393); MB/CK RELATIVE INDEX 2.17 (< OR =4); POTASSIUM SERUM 3.6 MEQ/L (3.5-5.1); SODIUM LEVEL 135 MEQ/L (136-145); TOTAL PROTEIN 6.8 GM/DL (6.4-8.2); TROPONIN I < 0.02 NG/ML (< 0.10)
[2020-10-01] MEDS ORDERED: ISOVUE-370 76% 100ML VIAL As Ordered ONE (15:01)
--- NOTE | 2020-10-01 15:32 | REP ---
INDICATION: pleuritic chest pain COMPARISON: 07/12/[address] angiography TECHNIQUE: CT angiography of the chest attention pulmonary arteries after the intravenous administration of 100 cc Isovue 370 FINDINGS: There is excellent visualization of the pulmonary arterial vasculature. No focal filling defects are present that would be considered consistent with acute pulmonary emboli. There is no mediastinal or hilar adenopathy. There are no pleural or pericardial effusions. The imaged upper abdomen and imaged osseous structures are stable and intact. Evaluation of the lung barrientos shows lung field hypoexpansion which crowds the vascularity. No new abnormal nodules, masses, or opacities are present. Limited evaluation of the thoracic aorta shows no evidence of significant change compared to the prior exam. IMPRESSION: CT findings are within normal limits. <Electronically signed by Donnell Richardson > 10/01/20 [id number]
[2020-10-01 16:00] VITALS: BP 136/63
--- NOTE | 2020-10-01 19:56 | ECGEPIP ---
[facility] - ED Test Date: 2020-10-01 Pat Name: MARYJANE MICHELLE Department: Room: - Gender: Female Intranet Developer: LISETH : 1955 Requested By: Ever Colunga Order Number: [id number] Reading MD: Amairani Rico Measurements Intervals [place] Rate: 59 P: 49 AR: 188 QRS: 1 QRSD: 82 T: 20 QT: 410 QTc: 405 Interpretive Statements Sinus bradycardia similar 07/12/14 Electronically Signed on 10-01-2020 19:56:34 EDT by Amairani Rico
== END 2020-10-01 16:38 | disposition home or self-care (01) ==
LOC: M ED 10:36
DX: M54.5 Low back pain (principal); R10.9 Unspecified abdominal pain; N20.0 Calculus of kidney; R06.02 Shortness of breath; R00.1 Bradycardia, unspecified; R11.0 Nausea; K21.9 Gastro-esophageal reflux disease without esophagitis; Z98.84 Bariatric surgery status; Z88.6 Allergy status to analgesic agent; Z79.899 Other long term (current) drug therapy
CPT/HCPCS: 36415; 71045; 71275; 74176; 80048; 80076; 81001; 82550; 82553; 83690; 84484; 85025; 87086; 93005; 93041; 94760; 99285; Q9967

== ENCOUNTER → 2020-11-20 | Outpatient (REF) | payer OTHER | LOC: M SFHCWAGY 13:27 | PROVIDERS: ATTEND Nurse Practitioner Women's Health | DX: Z12.4 Encounter for screening for malignant neoplasm of cervix (principal); Z77.9 Other contact with and (suspected) exposures hazardous to health; Z01.419 Encounter for gynecological examination (general) (routine) without abnormal findings ==

== ENCOUNTER → 2020-11-20 | Outpatient (CLI) | payer OTHER ==
--- NOTE | 2020-11-20 12:26 | REPMRS ---
Patient History The patient states she had a clinical breast exam in October 2020. Family history of colorectal cancer at age 50 or over in maternal grandfather, colorectal cancer at age 50 or over and endometrial cancer at age 50 or over in maternal aunt. Took hormonal contraceptives for 1 year. Took unspecified hormones for 12 years 6 months. Patient states no breast complaints today. Patient has signed MRS History Sheet. Digital Woman Screen Mammo: November 20, 2020 - Exam #: [id number] Bilateral CC and MLO view(s) were taken. Technologist: Mili Shah, Technologist Prior study comparison: May 14, 2018, bilateral digital woman screen mammo performed at [facility]. May 08, 2017, digital woman screen mammo performed at [facility]. FINDINGS: The breast tissue is almost entirely fat. Screening. Digital screening (2D) mammography was performed bilaterally in the CC and MLO projections. Additionally, breast tomosynthesis (3D mammography) was performed bilaterally in the CC and MLO projections. Todays exam was compared to the prior exam/exams. By history, the patient has no complaints of a palpable breast abnormality or other significant breast complaints. The breasts are unchanged in size and shape. There are no rashawn-soft tissue densities or spiculated masses. There is no internal architectural distortion. There are no suspicious rashawn-calcific clusters. Skin thickening or nipple retraction is not present. The Volpara volumetric breast density category is A, the breasts are almost entirely fatty. IMPRESSION: BI-RADS Category 2- Benign Findings. There is no evidence of malignant alteration of the breasts. Followup examination recommended in one year. This mammogram was read with the assistance of [facility],an FDA approved computer aided detection system for mammography. The lifetime Tyrer-Cuzick score is 5.6% Negative x-ray reports should not delay surgical consultation if a dominant or clinically suspicious mass is present. Not all breast cancers can be identified by mammography. Therefore, we recommend that you continue to perform regular breast self-examination and physical examination and then promptly contact your physician of any concerns or changes. Adenosis and dense breasts may obscure an underlying neoplasm. No significant changes when compared with prior studies. Assessment: BI-RADS/ACR category 2 mammogram. Benign Findings. Recommendation Routine screening mammogram of both breasts in 1 year. Electronically Signed By: Best Long MD 11/20/20 1055
== END ==
LOC: M WHC 09:59
PROVIDERS: ATTEND Nurse Practitioner Women's Health
DX: Z12.31 Encounter for screening mammogram for malignant neoplasm of breast (principal); Z12.4 Encounter for screening for malignant neoplasm of cervix; Z77.9 Other contact with and (suspected) exposures hazardous to health
CPT/HCPCS: 77063; 77067; 87624; G0123; G0463

== ENCOUNTER → 2021-02-19 | Outpatient (CLI) | payer OTHER ==
--- NOTE | 2021-02-19 10:43 | REP ---
INDICATION: OTHER INTRA-ABDOMINAL AND PELVIC SWELLING, MASS AN COMPARISON: None. TECHNIQUE: Real time morel scale ultrasound examination using linear high-frequency and curved array transducers. FINDINGS: Directed ultrasound examination of the periumbilical region demonstrates a right periumbilical fat containing hernia measuring roughly 3.5 cm maximal diameter. The peritoneal defect measures 2.7 cm on Valsalva. IMPRESSION: Fat containing right periumbilical hernia. <Electronically signed by Rickey Alas > 02/19/21 [id number]
== END ==
LOC: M RAD 10:14
PROVIDERS: ATTEND Physician Assistant
DX: R19.09 Other intra-abdominal and pelvic swelling, mass and lump (principal)

== ENCOUNTER 2021-03-02 13:56 | Emergency (ER) | payer OTHER ==
[~2021-03-02] VITALS: Ht 147.3 cm; Wt 86.0 kg
[2021-03-02] MEDS ORDERED: PROPARACAINE 0.5% OPHTH SOL 15ML OD ONE (17:00)
[2021-03-02] MEDS ORDERED: FLUORESCEIN OPHTH 1 MG STRIP OD ONE (17:00)
[2021-03-02] MEDS ORDERED: POLYSOL OD (18:14)
[2021-03-02] MEDS ORDERED: POLYTRIM OPTH DROPS 10ML OD ONE (18:15)
[2021-03-02 18:42] VITALS: BP 143/65
== END 2021-03-02 18:45 | disposition home or self-care (01) ==
LOC: M ED 13:56
DX: H10.31 Unspecified acute conjunctivitis, right eye (principal); Z79.82 Long term (current) use of aspirin; Z79.899 Other long term (current) drug therapy; Z88.6 Allergy status to analgesic agent; Z88.1 Allergy status to other antibiotic agents

== ENCOUNTER → 2021-03-08 | Outpatient (REF) ==
[~2021-03-08] MED LIST changes: +POLYSOL OD
== END ==
LOC: M LABSMTC 10:02
PROVIDERS: ATTEND Pediatrics
DX: Z11.52 Encounter for screening for COVID-19 (principal)

== ENCOUNTER 2021-10-30 13:05 | Emergency (ER) | payer MEDICARE, OTHER ==
[~2021-10-30] VITALS: Ht 147.3 cm; Wt 81.5 kg
[~2021-10-30 13:05] MED LIST changes: +ALBU2.5V10 INH; -ALBU83IN INH; +ARTIDRO OP; +CLOB0.0548 TOP; +LUNE2TAB23 PO; +MUPI30CR TOP; +XYZASOL2 PO
[2021-10-30 14:17] LABS: BASO % 0.7 % (0.0-1.0); EOS # 0.1 10^3/uL (0.0-0.5); EOS % 0.9 % (0.0-3.0); HEMATOCRIT 43.2 % (36.0-47.0); HEMOGLOBIN 14.5 g/dl (12.0-15.5); LYMPH # 1.3 10^3/uL (1.5-5.0); LYMPH % 22.3 % (24.0-44.0); MEAN CORPUSCULAR HEMOGLOBIN 29.1 pg (27.0-33.0); MEAN CORPUSCULAR HGB CONC 33.6 g/dl (32.0-36.5); MEAN CORPUSCULAR VOLUME 86.7 fl (80.0-96.0); MONO # 0.5 10^3/uL (0.0-0.8); MONO % 8.2 % (2.0-8.0); NEUTROPHILS % 67.6 % (36.0-66.0); PLATELET COUNT, AUTOMATED 432 10^3/uL (150-450); RED BLOOD COUNT 4.98 10^6/uL (4.00-5.40); WHITE BLOOD COUNT 5.9 10^3/uL (4.0-10.0)
[2021-10-30 14:54] LABS: ALBUMIN 3.5 GM/DL (3.2-5.2); ALT/SGPT 14 U/L (12-78); BILIRUBIN,DIRECT 0.2 MG/DL (0.0-0.2); BILIRUBIN,TOTAL 0.5 MG/DL (0.2-1.0); BLOOD UREA NITROGEN 10 MG/DL (7-18); CALCIUM LEVEL 9.4 MG/DL (8.8-10.2); CARBON DIOXIDE LEVEL 28 MEQ/L (21-32); CHLORIDE LEVEL 101 MEQ/L (98-107); CREATININE FOR GFR 0.59 MG/DL (0.55-1.30); GLOMERULAR FILTRATION RATE > 60.0 (>45); GLUCOSE, FASTING 85 MG/DL (70-100); LIPASE 144 U/L (73-393); POTASSIUM SERUM 3.5 MEQ/L (3.5-5.1); SODIUM LEVEL 138 MEQ/L (136-145); TOTAL PROTEIN 6.6 GM/DL (6.4-8.2)
[2021-10-30] MEDS ORDERED: NS 1,000 ML IV ONE (15:10)
[2021-10-30] MEDS ORDERED: ONDANSETRON 4MG 2ML VIAL IV ONE (15:10)
[2021-10-30 16:50] VITALS: BP 128/58
== END 2021-10-30 16:57 | disposition home or self-care (01) ==
LOC: M ED 13:05
DX: R19.7 Diarrhea, unspecified (principal); R11.0 Nausea; Z88.1 Allergy status to other antibiotic agents; Z88.6 Allergy status to analgesic agent; Z98.84 Bariatric surgery status
CPT/HCPCS: 80048; 80076; 83690; 85025; 96361; 96374; 99284; J2405

== ENCOUNTER → 2021-11-01 | Outpatient (REF) | payer MEDICARE, OTHER | LOC: M LAB REF 16:14 | PROVIDERS: ATTEND Physician Assistant Medical | DX: R19.7 Diarrhea, unspecified (principal) ==

== ENCOUNTER → 2021-12-10 | Outpatient (CLI) | payer MEDICARE, OTHER | LOC: M WHC 15:52 | PROVIDERS: ATTEND Physician Assistant | DX: Z12.31 Encounter for screening mammogram for malignant neoplasm of breast (principal) ==

== ENCOUNTER → 2022-03-05 | Outpatient (REF) | payer MEDICARE, OTHER | LOC: M SFHCWAGY 18:00 | PROVIDERS: ATTEND Obstetrics & Gynecology | DX: Z12.4 Encounter for screening for malignant neoplasm of cervix (principal) | CPT/HCPCS: 87624; G0123 ==

== ENCOUNTER → 2022-05-15 | Outpatient (CLI) | payer OTHER ==
[2022-05-15 17:56] LABS: BASO # 0.1 10^3/uL (0.0-0.2); BASO % 0.7 % (0.0-1.0); EOS # 0.1 10^3/uL (0.0-0.5); EOS % 0.7 % (0.0-3.0); HEMATOCRIT 44.9 % (36.0-47.0); HEMOGLOBIN 14.6 g/dl (12.0-15.5); LYMPH # 2.2 10^3/uL (1.5-5.0); LYMPH % 30.7 % (24.0-44.0); MEAN CORPUSCULAR HEMOGLOBIN 28.6 pg (27.0-33.0); MEAN CORPUSCULAR HGB CONC 32.5 g/dl (32.0-36.5); MEAN CORPUSCULAR VOLUME 87.9 fl (80.0-96.0); MONO # 0.5 10^3/uL (0.0-0.8); NEUTROPHILS # 4.3 10^3/uL (1.5-8.5); NEUTROPHILS % 60.6 % (36.0-66.0); PLATELET COUNT, AUTOMATED 443 10^3/uL (150-450); RED BLOOD COUNT 5.11 10^6/uL (4.00-5.40); WHITE BLOOD COUNT 7.1 10^3/uL (4.0-10.0)
[2022-05-15 18:29] LABS: TOTAL IRON BINDING CAPACITY 319 UG/DL (250-425)
[2022-05-15 18:30] LABS: ALBUMIN 3.8 G/DL (3.2-5.2); ALKALINE PHOSPHATASE 63 U/L (46-116); ALT/SGPT 14 U/L (7.0-40); AST/SGOT 19 U/L (<34); BILIRUBIN,TOTAL 0.4 MG/DL (0.3-1.2); BLOOD UREA NITROGEN 23 MG/DL (9-23); CARBON DIOXIDE LEVEL 29 MMOL/L (20-31); CHLORIDE LEVEL 102 MMOL/L (98-107); CHOLESTEROL LEVEL 178 MG/DL (<200); CHOLESTEROL RISK RATIO 1.96 (<5); GLOMERULAR FILTRATION RATE > 60.0 (>45); GLUCOSE, FASTING 83 MG/DL (74-106); HDL CHOLESTEROL 90.6 MG/DL (>40); IRON (FE) 29 UG/DL (50-170); LDL CHOLESTEROL 75.4 MG/DL (<100); NON-HDL-C 87.4 MG/DL; PERCENT SATURATION 9.1 % (13.2-45.0); POTASSIUM SERUM 4.2 MMOL/L (3.5-5.1); SODIUM LEVEL 137 MMOL/L (136-145); TOTAL PROTEIN 6.9 G/DL (5.7-8.2); TRIGLYCERIDES LEVEL 60 MG/DL (<150)
[2022-05-15 18:31] LABS: FERRITIN 23.8 NG/ML (7.3-270.7); FOLATE > 24.00 NG/ML (>5.4); TOTAL 25(OH) VITAMIN D 49.2 NG/ML (20.0-100.0)
[2022-05-15 18:42] LABS: VITAMIN B12 LEVEL > 2000 PG/ML (211-911)
== END ==
LOC: M LAB 16:28
PROVIDERS: ATTEND Registered Nurse
DX: Z98.84 Bariatric surgery status (principal)

== ENCOUNTER 2022-07-24 13:27 | Outpatient (CLI) | payer MEDICARE, OTHER ==
[~2022-07-24] VITALS: Ht 147.3 cm; Wt 79.8 kg
[~2022-07-24 13:27] MED LIST changes: +ALBUTEROL SULFATE 2.5MG/0.5ML INH NEB SOLN INH PRN; +EPINEPHrine INJ 1 MG/ML 1ML AMP IM PRN; +diphenhydrAMINE 50MG/ML VIAL IV PRN; +methylPREDNISolone 125MG 2ML VIAL IV PRN
[2022-07-24 13:45] VITALS: BP 128/61
[2022-07-24] MEDS ORDERED: NS 1,000 ML IV SCH (14:00)
[2022-07-24] MEDS ORDERED: FERRIC CARBOXYMALTOSE INJ 750 MG in NS 250 ML (>50kg) IV ONE ×3 (14:00)
[2022-07-24 15:08] VITALS: BP 124/65
== END 2022-07-24 15:10 ==
LOC: M INFU 13:27
PROVIDERS: ATTEND Internal Medicine Hematology
DX: D50.9 Iron deficiency anemia, unspecified (principal); Z88.1 Allergy status to other antibiotic agents; Z88.6 Allergy status to analgesic agent
CPT/HCPCS: 96365; J1439

== ENCOUNTER → 2022-10-13 | Outpatient (REF) | payer OTHER, MEDICARE ==
[~2022-10-13] MED LIST changes: -ALBUTEROL SULFATE 2.5MG/0.5ML INH NEB SOLN INH PRN; -EPINEPHrine INJ 1 MG/ML 1ML AMP IM PRN; -diphenhydrAMINE 50MG/ML VIAL IV PRN; -methylPREDNISolone 125MG 2ML VIAL IV PRN
[2022-10-13 13:08] LABS: BASO # 0.1 10^3/uL (0.0-0.2); EOS # 0.1 10^3/uL (0.0-0.5); EOS % 0.9 % (0.0-3.0); HEMATOCRIT 45.1 % (36.0-47.0); HEMOGLOBIN 14.7 g/dl (12.0-15.5); LYMPH # 2.3 10^3/uL (1.5-5.0); LYMPH % 28.7 % (24.0-44.0); MEAN CORPUSCULAR HEMOGLOBIN 29.3 pg (27.0-33.0); MEAN CORPUSCULAR HGB CONC 32.6 g/dl (32.0-36.5); MONO # 0.6 10^3/uL (0.0-0.8); MONO % 7.7 % (2.0-8.0); NEUTROPHILS # 4.9 10^3/uL (1.5-8.5); NEUTROPHILS % 61.3 % (36.0-66.0); PLATELET COUNT, AUTOMATED 438 10^3/uL (150-450); RED BLOOD COUNT 5.01 10^6/uL (4.00-5.40); WHITE BLOOD COUNT 8.1 10^3/uL (4.0-10.0)
== END ==
LOC: M LABDRWAD 12:34
PROVIDERS: ATTEND Internal Medicine Hematology
DX: E61.1 Iron deficiency (principal)

== ENCOUNTER → 2022-12-26 | Outpatient (REF) | payer OTHER ==
[~2022-12-26] MED LIST changes: -LUNE2TAB23 PO; +LUNE2TAB28 PO
[2022-12-26 13:36] LABS: BASO # 0.1 10^3/uL (0.0-0.2); BASO % 0.7 % (0.0-1.0); EOS # 0.1 10^3/uL (0.0-0.5); EOS % 0.5 % (0.0-3.0); LYMPH # 2.4 10^3/uL (1.5-5.0); LYMPH % 21.5 % (24.0-44.0); MEAN CORPUSCULAR HGB CONC 32.6 g/dl (32.0-36.5); MONO # 0.7 10^3/uL (0.0-0.8); MONO % 5.9 % (2.0-8.0); NEUTROPHILS # 7.9 10^3/uL (1.5-8.5); PLATELET COUNT, AUTOMATED 463 10^3/uL (150-450); WHITE BLOOD COUNT 11.1 10^3/uL (4.0-10.0)
[2022-12-26 14:06] LABS: FERRITIN 118.6 NG/ML (7.3-270.7)
== END ==
LOC: M SFHCPLAZ 11:20
PROVIDERS: ATTEND Internal Medicine Hematology
DX: E61.1 Iron deficiency (principal)

== ENCOUNTER → 2023-01-02 | Outpatient (CLI) | payer OTHER | LOC: M WHC 09:15 | PROVIDERS: ATTEND Physician Assistant | DX: Z12.31 Encounter for screening mammogram for malignant neoplasm of breast (principal); M81.0 Age-related osteoporosis without current pathological fracture ==

== ENCOUNTER → 2023-02-04 | Day surgery (SDC) | payer OTHER ==
[~2023-02-04] VITALS: Ht 147.3 cm; Wt 81.0 kg
[~2023-02-04] MED LIST changes: +LIDOCAINE 2% 100MG/5ML SDV (FOR ANES.) As Ordered ONE; +NS 1,000 ML IV ONE; +ONDA4TAB6 PO; +fentaNYL 100 MCG/2 ML INJECTION As Ordered ONE; +propofoL 200 MG/20 ML VIAL As Ordered ONE
[2023-02-04 13:25] VITALS: TEMP 98.2
[2023-02-04 13:49] VITALS: BP 136/74; O2SAT 99
== END | disposition home or self-care (01) ==
LOC: M OPP 10:23
PROVIDERS: ATTEND Internal Medicine Gastroenterology
DX: Z86.010 Personal history of colon polyps (principal); D50.9 Iron deficiency anemia, unspecified; K28.9 Gastrojejunal ulcer, unspecified as acute or chronic, without hemorrhage or perforation; Z98.84 Bariatric surgery status; F17.200 Nicotine dependence, unspecified, uncomplicated; G47.30 Sleep apnea, unspecified; Z99.89 Dependence on other enabling machines and devices; Z79.02 Long term (current) use of antithrombotics/antiplatelets; Z79.1 Long term (current) use of non-steroidal anti-inflammatories (NSAID); Z79.82 Long term (current) use of aspirin; Z79.83 Long term (current) use of bisphosphonates; Z79.890 Hormone replacement therapy; Z79.899 Other long term (current) drug therapy; Z88.1 Allergy status to other antibiotic agents; Z88.6 Allergy status to analgesic agent
CPT/HCPCS: 43239; 88305; G0105; J3010

== ENCOUNTER → 2023-03-30 | Outpatient (REF) | payer MEDICARE, OTHER ==
[~2023-03-30] MED LIST changes: -LIDOCAINE 2% 100MG/5ML SDV (FOR ANES.) As Ordered ONE; -NS 1,000 ML IV ONE; -fentaNYL 100 MCG/2 ML INJECTION As Ordered ONE; -propofoL 200 MG/20 ML VIAL As Ordered ONE
[2023-03-30 15:24] LABS: HEMATOCRIT 45.7 % (36.0-47.0); MEAN CORPUSCULAR HEMOGLOBIN 30.2 pg (27.0-33.0); MEAN CORPUSCULAR HGB CONC 32.8 g/dl (32.0-36.5); PLATELET COUNT, AUTOMATED 453 10^3/uL (150-450); RED BLOOD COUNT 4.97 10^6/uL (4.00-5.40); WHITE BLOOD COUNT 8.9 10^3/uL (4.0-10.0)
[2023-03-30 15:38] LABS: C REACTIVE PROTEIN QUANTITATIV < 0.40 MG/DL (<1.0)
[2023-03-30 15:40] LABS: ALBUMIN 3.7 G/DL (3.2-5.2); ALKALINE PHOSPHATASE 62 U/L (46-116); ALT/SGPT 14 U/L (7.0-40); AST/SGOT 16 U/L (<34); BILIRUBIN,TOTAL 0.5 MG/DL (0.3-1.2); BLOOD UREA NITROGEN 24 MG/DL (9-23); CALCIUM LEVEL 9.3 MG/DL (8.3-10.6); CARBON DIOXIDE LEVEL 30 MMOL/L (20-31); CHLORIDE LEVEL 101 MMOL/L (98-107); CHOLESTEROL LEVEL 197 MG/DL (<200); CHOLESTEROL RISK RATIO 2.05 (<5); CREATININE FOR GFR 0.64 MG/DL (0.55-1.30); GLOMERULAR FILTRATION RATE > 60.0 (>45); GLUCOSE, FASTING 106 MG/DL (74-106); LDL CHOLESTEROL 84.8 MG/DL (<100); POTASSIUM SERUM 4.1 MMOL/L (3.5-5.1); SODIUM LEVEL 139 MMOL/L (136-145); TOTAL PROTEIN 6.8 G/DL (5.7-8.2); TRIGLYCERIDES LEVEL 81 MG/DL (<150)
[2023-03-30 15:41] LABS: FERRITIN 80.9 NG/ML (7.3-270.7); THYROID STIMULATING HORMONE 2.531 uIU/ML (0.55-4.78); TOTAL 25(OH) VITAMIN D 37.3 NG/ML (20.0-100.0)
[2023-03-30 15:43] LABS: FREE T4 1.52 NG/DL (0.89-1.76)
[2023-03-30 15:46] LABS: VITAMIN B12 LEVEL 1219 PG/ML (211-911)
[2023-03-30 16:05] LABS: HEMOGLOBIN A1c 5.3 % (4.0-6.0)
== END ==
LOC: M SFHCPLAZ 09:23
PROVIDERS: ATTEND Internal Medicine Hematology
DX: Z98.84 Bariatric surgery status (principal); D50.9 Iron deficiency anemia, unspecified; Z79.899 Other long term (current) drug therapy

== ENCOUNTER 2023-07-06 10:52 | Day surgery (SDC) | payer MEDICARE, OTHER ==
[~2023-07-06] VITALS: Ht 147.3 cm; Wt 85.7 kg
[~2023-07-06 10:52] MED LIST changes: -CORT1OIN2 TOP; +CYAN100049 PO; +HYDR28OI12 TOP; +LEVA1.2525 INH; +NS 1,000 ML IV ONE; +OMEP40CA5 PO; -ROSU10TA6 PO; +ROSU10TA61 PO
[2023-07-06] MEDS ORDERED: propofoL 200 MG/20 ML VIAL As Ordered ONE (13:23)
[2023-07-06 13:42] VITALS: TEMP 97.3
[2023-07-06 13:57] VITALS: BP 148/67; O2SAT 98
== END 2023-07-06 13:59 | disposition home or self-care (01) ==
LOC: M OPP 10:52
PROVIDERS: ATTEND Internal Medicine Gastroenterology
DX: K29.50 Unspecified chronic gastritis without bleeding (principal); R12 Heartburn; Z87.19 Personal history of other diseases of the digestive system; Z98.84 Bariatric surgery status; E03.9 Hypothyroidism, unspecified; E78.00 Pure hypercholesterolemia, unspecified; J45.909 Unspecified asthma, uncomplicated; Z79.899 Other long term (current) drug therapy; Z79.890 Hormone replacement therapy; D47.3 Essential (hemorrhagic) thrombocythemia; G47.30 Sleep apnea, unspecified; Z90.710 Acquired absence of both cervix and uterus; Z88.6 Allergy status to analgesic agent; Z88.1 Allergy status to other antibiotic agents; Z87.891 Personal history of nicotine dependence

== ENCOUNTER → 2023-09-22 | Outpatient (CLI) | payer MEDICARE, OTHER ==
[~2023-09-22] MED LIST changes: -NS 1,000 ML IV ONE; +ONDA-282 PO; -ONDA4TAB6 PO
== END ==
LOC: M WHC 08:27
PROVIDERS: ATTEND Physician Assistant
DX: Z12.31 Encounter for screening mammogram for malignant neoplasm of breast (principal)

== ENCOUNTER → 2023-10-26 | Outpatient (REF) | payer MEDICARE, OTHER ==
[2023-10-26 13:18] LABS: BASO # 0.1 10^3/uL (0.0-0.2); BASO % 1.2 % (0.0-1.0); EOS # 0.1 10^3/uL (0.0-0.5); HEMATOCRIT 43.2 % (36.0-47.0); HEMOGLOBIN 14.1 g/dl (12.0-15.5); LYMPH # 2.6 10^3/uL (1.5-5.0); LYMPH % 51.3 % (24.0-44.0); MEAN CORPUSCULAR HEMOGLOBIN 29.5 pg (27.0-33.0); MEAN CORPUSCULAR HGB CONC 32.6 g/dl (32.0-36.5); MEAN CORPUSCULAR VOLUME 90.4 fl (80.0-96.0); MONO # 0.5 10^3/uL (0.0-0.8); MONO % 9.7 % (2.0-8.0); NEUTROPHILS # 1.8 10^3/uL (1.5-8.5); NEUTROPHILS % 35.6 % (36.0-66.0); PLATELET COUNT, AUTOMATED 424 10^3/uL (150-450); RED BLOOD COUNT 4.78 10^6/uL (4.00-5.40); WHITE BLOOD COUNT 5.1 10^3/uL (4.0-10.0)
[2023-10-26 13:49] LABS: IRON (FE) 60 UG/DL (50-170); PERCENT SATURATION 20.1 % (13.2-45.0); TOTAL IRON BINDING CAPACITY 298 UG/DL (250-425)
[2023-10-26 13:50] LABS: ALBUMIN 3.6 G/DL (3.2-5.2); ALKALINE PHOSPHATASE 72 U/L (46-116); ALT/SGPT 14 U/L (7.0-40); AST/SGOT 15 U/L (<34); BILIRUBIN,TOTAL 0.5 MG/DL (0.3-1.2); BLOOD UREA NITROGEN 23 MG/DL (9-23); CARBON DIOXIDE LEVEL 30 MMOL/L (20-31); CHLORIDE LEVEL 103 MMOL/L (98-107); CREATININE FOR GFR 0.67 MG/DL (0.55-1.30); GLOMERULAR FILTRATION RATE > 60.0 (>45); GLUCOSE, FASTING 93 MG/DL (74-106); POTASSIUM SERUM 3.8 MMOL/L (3.5-5.1); SODIUM LEVEL 138 MMOL/L (136-145); TOTAL PROTEIN 6.5 G/DL (5.7-8.2)
[2023-10-26 13:53] LABS: FERRITIN 66.7 NG/ML (7.3-270.7); FOLATE > 24.00 NG/ML (>5.4)
[2023-10-26 13:54] LABS: VITAMIN B12 LEVEL 1344 PG/ML (211-911)
== END ==
LOC: M LABDRWAD 12:25
PROVIDERS: ATTEND Internal Medicine Medical Oncology
DX: D75.839 Thrombocytosis, unspecified (principal)

== ENCOUNTER → 2024-01-11 | Outpatient (CLI) | payer MEDICARE, OTHER ==
[~2024-01-11] MED LIST changes: +FAMO1TAB11
== END ==
LOC: M WHC 09:32
PROVIDERS: ATTEND Physician Assistant
DX: Z12.31 Encounter for screening mammogram for malignant neoplasm of breast (principal)

== ENCOUNTER → 2024-03-23 | Outpatient (REF) | payer MEDICARE, OTHER ==
[2024-03-23 14:01] LABS: BASO # 0.1 10^3/uL (0.0-0.2); BASO % 1.1 % (0.0-1.0); EOS # 0.1 10^3/uL (0.0-0.5); EOS % 1.8 % (0.0-3.0); HEMATOCRIT 45.7 % (36.0-47.0); HEMOGLOBIN 14.8 g/dl (12.0-15.5); LYMPH # 2.6 10^3/uL (1.5-5.0); LYMPH % 45.8 % (24.0-44.0); MEAN CORPUSCULAR HEMOGLOBIN 29.5 pg (27.0-33.0); MEAN CORPUSCULAR HGB CONC 32.4 g/dl (32.0-36.5); MONO # 0.5 10^3/uL (0.0-0.8); MONO % 8.9 % (2.0-8.0); NEUTROPHILS # 2.4 10^3/uL (1.5-8.5); PLATELET COUNT, AUTOMATED 450 10^3/uL (150-450); RED BLOOD COUNT 5.02 10^6/uL (4.00-5.40); WHITE BLOOD COUNT 5.6 10^3/uL (4.0-10.0)
[2024-03-23 16:25] LABS: FERRITIN 49.4 NG/ML (7.3-270.7); THYROID STIMULATING HORMONE 3.255 uIU/ML (0.55-4.78); TOTAL 25(OH) VITAMIN D 38.6 NG/ML (20.0-100.0)
[2024-03-23 16:26] LABS: FOLATE > 24.0 NG/ML (>5.4); VITAMIN B12 LEVEL 1066 PG/ML (211-911)
[2024-03-23 16:27] LABS: FREE T4 1.44 NG/DL (0.89-1.76)
[2024-03-23 16:28] LABS: ALBUMIN 3.6 G/DL (3.2-5.2); ALKALINE PHOSPHATASE 66 U/L (35-104); ALT/SGPT 12 U/L (7.0-40); AST/SGOT 16 U/L (<34); BILIRUBIN,TOTAL 0.5 MG/DL (0.3-1.2); BLOOD UREA NITROGEN 21 MG/DL (9-23); CARBON DIOXIDE LEVEL 31 MMOL/L (20-31); CHLORIDE LEVEL 105 MMOL/L (98-107); CHOLESTEROL LEVEL 200 MG/DL (<200); CHOLESTEROL RISK RATIO 2.17 (<5); CREATININE FOR GFR 0.68 MG/DL (0.55-1.30); GLOMERULAR FILTRATION RATE > 60.0 (>45); GLUCOSE, FASTING 95 MG/DL (74-106); HDL CHOLESTEROL 92.1 MG/DL (>40); LDL CHOLESTEROL 94.7 MG/DL (<100); NON-HDL-C 107.9 MG/DL; POTASSIUM SERUM 4.4 MMOL/L (3.5-5.1); SODIUM LEVEL 142 MMOL/L (136-145); TOTAL PROTEIN 6.7 G/DL (5.7-8.2); TRIGLYCERIDES LEVEL 66 MG/DL (<150)
[2024-03-23 16:33] LABS: HEMOGLOBIN A1c 5.4 % (4.0-6.0)
== END ==
LOC: M SFHCADAM 09:02
PROVIDERS: ATTEND Physician Assistant
DX: D47.3 Essential (hemorrhagic) thrombocythemia (principal); I10 Essential (primary) hypertension; Z98.84 Bariatric surgery status; E03.9 Hypothyroidism, unspecified; E78.00 Pure hypercholesterolemia, unspecified; K21.9 Gastro-esophageal reflux disease without esophagitis; E66.01 Morbid (severe) obesity due to excess calories

== ENCOUNTER → 2024-05-02 | Outpatient (CLI) | payer MEDICARE, OTHER ==
[~2024-05-02] MED LIST changes: +VANC125C13 PO; -VANC125C3 PO
[2024-05-02 14:37] LABS: BASO # 0.1 10^3/uL (0.0-0.2); BASO % 0.6 % (0.0-1.0); EOS # 0.1 10^3/uL (0.0-0.5); HEMATOCRIT 44.7 % (36.0-47.0); HEMOGLOBIN 14.5 g/dl (12.0-15.5); LYMPH # 2.5 10^3/uL (1.5-5.0); LYMPH % 28.6 % (24.0-44.0); MEAN CORPUSCULAR HEMOGLOBIN 29.8 pg (27.0-33.0); MEAN CORPUSCULAR HGB CONC 32.4 g/dl (32.0-36.5); MONO # 0.7 10^3/uL (0.0-0.8); MONO % 7.9 % (2.0-8.0); NEUTROPHILS # 5.3 10^3/uL (1.5-8.5); NEUTROPHILS % 61.4 % (36.0-66.0); PLATELET COUNT, AUTOMATED 447 10^3/uL (150-450); RED BLOOD COUNT 4.86 10^6/uL (4.00-5.40); WHITE BLOOD COUNT 8.6 10^3/uL (4.0-10.0)
[2024-05-02 15:09] LABS: ALBUMIN 3.6 G/DL (3.2-5.2); ALKALINE PHOSPHATASE 64 U/L (35-104); ALT/SGPT 14 U/L (7.0-40); AST/SGOT 15 U/L (<34); BILIRUBIN,TOTAL 0.5 MG/DL (0.3-1.2); BLOOD UREA NITROGEN 23 MG/DL (9-23); CARBON DIOXIDE LEVEL 29 MMOL/L (20-31); CHLORIDE LEVEL 103 MMOL/L (98-107); CREATININE FOR GFR 0.59 MG/DL (0.55-1.30); GLOMERULAR FILTRATION RATE > 60.0 (>45); GLUCOSE, FASTING 98 MG/DL (74-106); IRON (FE) 83 UG/DL (50-170); PERCENT SATURATION 26.9 % (13.2-45.0); SODIUM LEVEL 139 MMOL/L (136-145); TOTAL IRON BINDING CAPACITY 308 UG/DL (250-425); TOTAL PROTEIN 6.8 G/DL (5.7-8.2)
[2024-05-02 15:11] LABS: FERRITIN 59.3 NG/ML (7.3-270.7); FOLATE > 24.00 NG/ML (>5.4); VITAMIN B12 LEVEL 1224 PG/ML (211-911)
== END ==
LOC: M ADAMS 09:32
PROVIDERS: ATTEND Internal Medicine Medical Oncology
DX: D50.9 Iron deficiency anemia, unspecified (principal)

== ENCOUNTER → 2024-09-16 | Outpatient (CLI) | payer MEDICARE, OTHER ==
[~2024-09-16] MED LIST changes: +PSEU30TA87 PO
== END ==
LOC: M RAD 12:47
PROVIDERS: ATTEND Physician Assistant
DX: I83.812 Varicose veins of left lower extremity with pain (principal); I83.12 Varicose veins of left lower extremity with inflammation

== ENCOUNTER → 2024-11-04 | Outpatient (CLI) | payer MEDICARE, OTHER ==
[2024-11-04 17:42] LABS: BASO # 0.1 10^3/uL (0.0-0.2); BASO % 0.9 % (0.0-1.0); EOS # 0.0 10^3/uL (0.0-0.5); EOS % 0.5 % (0.0-3.0); LYMPH # 2.2 10^3/uL (1.5-5.0); LYMPH % 29.1 % (24.0-44.0); MONO # 0.6 10^3/uL (0.0-0.8); MONO % 7.7 % (2.0-8.0); NEUTROPHILS # 4.5 10^3/uL (1.5-8.5); NEUTROPHILS % 61.4 % (36.0-66.0); PLATELET COUNT, AUTOMATED 439 10^3/uL (150-450)
[2024-11-04 17:43] LABS: ALT/SGPT 13 U/L (7.0-40); AST/SGOT 19 U/L (<34); CALCIUM LEVEL 9.4 MG/DL (8.3-10.6); CARBON DIOXIDE LEVEL 29 MMOL/L (20-31); CHLORIDE LEVEL 102 MMOL/L (98-107); CREATININE FOR GFR 0.86 MG/DL (0.55-1.30); GLOMERULAR FILTRATION RATE 73.5 (>45); IRON (FE) 84 UG/DL (50-170); PERCENT SATURATION 29.7 % (13.2-45.0); POTASSIUM SERUM 4.4 MMOL/L (3.5-5.1); SODIUM LEVEL 142 MMOL/L (136-145)
[2024-11-04 17:46] LABS: VITAMIN B12 LEVEL 1420 PG/ML (211-911)
== END ==
LOC: M LABDRWAD 14:46
PROVIDERS: ATTEND Internal Medicine Medical Oncology
DX: D47.3 Essential (hemorrhagic) thrombocythemia (principal)